=== PATIENT | male | born 1970 | race American Indian/Alaskan Native ===

== ENCOUNTER 2018-12-08 09:55 | Emergency (ER) | payer SELFPAY ==
[2018-12-08 10:01] VITALS: BP 143/55
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
[2018-12-08 11:49] LABS: Basophils % (Auto) 0.6 % (0.0-1.8); Eosinophils # (Auto) 0.1 K/mm3 (0.0-0.4); Eosinophils % (Auto) 1.4 % (0.0-4.3); Hematocrit 40.2 % (35.5-45.6); Hemoglobin 13.8 gm/dl (11.8-15.2); Lymphocytes # (Auto) 1.8 K/mm3 (1.2-5.4); Lymphocytes % (Auto) 39.4 % (13.4-35.0); Mean Corpuscular HGB Conc 34 % (32-34); Mean Corpuscular Volume 90 fl (84-94); Monocytes # (Auto) 0.5 K/mm3 (0.0-0.8); Platelet Count 153 K/mm3 (140-440); Red Blood Count 4.48 M/mm3 (3.65-5.03); Red Cell Distribution Width 13.3 % (13.2-15.2)
--- NOTE | 2018-12-08 11:55 | Vascular Lab Report ---
PROCEDURE: VL VENOUS DUPLEX LE BILAT TECHNIQUE: Transverse and longitudinal sonograms obtained with baeza scale sonography. Spectral and c olor Doppler evaluation. Duplex study. Compression and augmentation performed. HISTORY: b/l leg edema COMPARISONS: None FINDINGS: The bilateral common femoral, superficial femoral, popliteal veins as well as visualized calf veins d emonstrate normal flow with Doppler. No filling defect. Unremarkable compression and augmentation. No evidence of deep venous thrombus either lower extremity. IMPRESSION: No evidence of deep venous thrombus either lower extremity. This document is electronically signed by Edwar Buitrago MD., December 08 2018 11:52:33 AM ET
[2018-12-08 12:09] LABS: Alanine Aminotransferase 31 units/L (7-56); Albumin 4.1 g/dL (3.9-5); BUN/Creatinine Ratio 10; Blood Urea Nitrogen 13 mg/dL (9-20); Calcium 9.6 mg/dL (8.4-10.2); Hemolysis Index 6
[2018-12-08 12:11] LABS: Bilirubin,Direct < 0.2 mg/dL (0-0.2)
[2018-12-08 12:41] LABS: Bilirubin,Urine NEG (Negative); Blood,Urine NEG (Negative); Color,Urine Yellow (Yellow); Mucus,Urine FEW /HPF; Protein,Urine <15 mg/dL mg/dL (Negative); Urobilinogen,Urine < 2.0 mg/dL (<2.0); WBC,Urine < 1.0 /HPF (0.0-6.0)
== END 2018-12-08 13:46 | disposition home or self-care (01) ==
LOC: ED 09:55
DX: R60.9 Edema, unspecified (principal); J45.909 Unspecified asthma, uncomplicated
CPT/HCPCS: 36415; 80048; 80076; 81001; 83880; 85025; 93970